=== PATIENT | female | born 1980 | race Caucasian/White ===

== ENCOUNTER 2017-10-12 18:23 | Emergency (ER) | payer OTHER ==
[2017-10-12 18:50] VITALS: BP 131/73
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
== END 2017-10-12 18:58 | disposition left against medical advice (07) ==
LOC: ED 18:23
DX: R79.9 Abnormal finding of blood chemistry, unspecified (principal); Z72.0 Tobacco use
CPT/HCPCS: 99281

== ENCOUNTER 2018-09-03 16:10 | Emergency (ER) | payer OTHER ==
--- NOTE | 2018-09-03 16:57 | ED ---
Substance Abuse/Use - HPI Summary HPI Summary: Pt is a 38 y/o F presenting to the ED with a chief complaint of substance abuse. She states she is an alcoholic and she would like to go through rehab/ detox. She went to [facility] earlier today and they were trying to get her into a program, but she ended up here. Her last drink was around 1030 this morning. Pt denies any fever, chills, erythema of eyes, sore throat, CP, SOB, cough, abdominal pain, N/V, dysuria, hematuria, myalgia, edema , rash, or dizziness. - History Of Current Complaint Chief Complaint: EDSubstanceAbuse Stated Complaint: MHE PER EMS Time Seen by Provider: 09/03/18 16:42 Hx Obtained From: Patient Hx Last Menstrual Period: 3 weeks ago Overdose Characteristics: Oral Timing Of Abuse: Daily Severity Initially: Moderate Severity Currently: Moderate Character: Anxious Aggravating Factor(s): Nothing Alleviating Factor(s): Nothing Associated Signs And Symptoms: Negative - Allergies/Home Medications Allergies/Adverse Reactions: Allergies Allergy/AdvReac Type Severity Reaction Status Date / Time No Known Allergies Allergy Verified 02/21/16 14:05 PMH/Surg Hx/FS Hx/Imm Hx Previously Healthy: Yes Endocrine/Hematology History: Denies: Hx Diabetes Psychiatric History: Reports: Hx Anxiety, Hx Depression Denies: Hx Eating Disorder, Hx of Violent Episodes Against Others - Surgical History Surgery Procedure, Year, and Place: eye. back Infectious Disease History: No Infectious Disease History: Denies: Traveled Outside the [place] in Last 30 Days - Family History Known Family History: Negative: Other - depression - Social History Alcohol Use: Occasionally Alcohol Amount: DWI in 2011 Hx Substance Use: Yes Substance Use Type: Reports: Heroin, Marijuana, Sedatives Substance Use Comment - Amount & Last Used: declined to answer at this time Hx Tobacco Use: Yes Smoking Status (MU): Current Some Day Smoker Type: Cigarettes Amount Used/How Often: <1 ppd Review of Systems Negative: Fever, Chills Negative: Erythema Negative: Sore Throat Negative: Chest Pain Negative: Shortness Of Breath, Cough Negative: Abdominal Pain, Vomiting, Nausea Negative: dysuria, hematuria Negative: Myalgia, Edema Negative: Rash Neurological: Negative - dizziness All Other Systems Reviewed And Are Negative: Yes Physical Exam - Summary Physical Exam Summary: Constitutional: Well-developed, Well-nourished, Alert. (-) Distressed Skin: Warm, Dry HENT: Normocephalic; Atraumatic Eyes: Conjunctiva normal Neck: Musculoskeletal ROM normal neck. (-) JVD, (-) Stridor, (-) Tracheal deviation Cardio: Rhythm regular, rate normal, Heart sounds normal; Intact distal pulses; The pedal pulses are 2+ and symmetric. Radial pulses are 2+ and symmetric. (-) Murmur Pulmonary/Chest wall: Effort normal. (-) Respiratory distress, (-) Wheezes, (-) Rales Abd: Soft, (-) tenderness, (-) Distension, (-) Guarding, (-) Rebound Musculoskeletal: (-) Edema Lymph: (-) Cervical adenopathy Neuro: Alert, Oriented x3 Psych: Mood and affect Normal Triage Information Reviewed: Yes Vital Signs On Initial Exam: Initial Vitals Temp Pulse Resp BP Pulse Ox 98.3 F 88 18 146/92 96 09/03/18 16:11 09/03/18 16:11 09/03/18 16:11 09/03/18 16:11 09/03/18 16:11 Vital Signs Reviewed: Yes Diagnostics - Vital Signs Vital Signs Temp Pulse Resp BP Pulse Ox 09/03/18 16:11 98.3 F 88 18 146/92 96 - Laboratory Lab Statement: Any lab studies that have been ordered have been reviewed, and results considered in the medical decision making process. Course/Dx - Course Course Of Treatment: Pt is a 38 y/o F presenting to the ED with a chief complaint of substance abuse. She states she is an alcoholic and she would like to go through rehab/detox. She went to [facility] earlier today and they were trying to get her into a program, but she ended up here. Her last drink was around 1030 this morning. Pt denies any fever, chills, erythema of eyes, sore throat, CP, SOB, cough, abdominal pain, N/V, dysuria, hematuria, myalgia, edema, rash, or dizziness. 1710 - I spoke with Dr. Coreas as well as Anna about the patient who states that she can be seen tomorrow at [facility], and since there is no immediate life threat to the patient, she does not need admission. Parents at bedside at 1720 expressing concern about possible admission. I reassured them that if she had a life- threatening condition she would be admitted, however based on my discussion with Dr. Coreas I do not think she needs it at this time. They are agreeable with the plan to follow up at [facility] tomorrow. She will be d/c'ed with a dx of alcoholism and instructions to f/u with Dr. Coreas and [facility]. She has no clinical signs of withdrawal. I provided her and her parents with resources for substance abuse. The patient has no clinical signs of acute intoxication at discharge. Her finger to nose test was intact, there was no ataxia. She had a steady gait. I suspect that the patient has a significant alcohol tolerance. - Diagnoses Provider Diagnoses: Alcoholism Discharge - Sign-Out/Discharge Documenting (check all that apply): Patient Departure Patient Received Moderate/Deep Sedation with Procedure: No - Discharge Plan Condition: Stable Disposition: HOME Prescriptions: chlordiazePOXIDE CAP* [Librium CAP*] 25 mg PO Q6HR PRN #5 cap MDD 4 PRN Reason: Withdrawal Symptoms Referrals: Anil Coreas MD [Medical Doctor] - Byron Nolen MD [Primary Care Provider] - [facility] [place] [Outside] - 1 Day Additional Instructions: Please follow up with Dr. Coreas of the [facility] tomorrow, 09/04/18. RETURN TO THE EMERGENCY DEPARTMENT WITH ANY NEW OR WORSENING SYMPTOMS. - Attestation Statements Document Initiated by Scribe: Yes Documenting Scribe: Emmie Rader Provider For Whom Scribe is Documenting (Include Credential): Bradly Kong MD. Scribe Attestation: I, Emmie Rader, scribed for Bradly Kong MD. on 09/03/18 at 1757. Status of Scribe Document: Ready Consult Consult: 1710 - I spoke with Dr. Coreas about the patient who states that she can be seen tomorrow at the [facility], and that there are no indicators for admission at this time.
[2018-09-03 17:54] VITALS: BP 135/99
== END 2018-09-03 17:53 | disposition home or self-care (01) ==
LOC: ED 16:10
DX: F10.20 Alcohol dependence, uncomplicated (principal); F17.210 Nicotine dependence, cigarettes, uncomplicated
CPT/HCPCS: 36415; 80320; 99282; G0480

== ENCOUNTER 2023-07-06 01:17 | Inpatient (IN) ==
[2023-07-06 02:03] LABS: ABS Monocytes 0.9 10^3/uL (0.0-0.9); ABS Neutrophils 7.2 10^3/uL (1.5-7.6); Eosinophil % 0.2 %; Hematocrit 39.8 % (35-45); Lymphocyte % 11.4 %; Mean Corpuscular Hemoglobin 30.6 pg (27-33); Mean Corpuscular Hgb Conc 35.2 g/dL (31-36); Mean Corpuscular Volume 86.9 fL (80-97); Mean Platelet Volume 7.4 fL (7.5-11.2); Platelet Count 474 10^3/uL (150-450); Red Blood Count 4.58 10^6/uL (3.63-4.92); Red Cell Distribution Width 13.6 % (12-17); White Blood Count 9.2 10^3/uL (3.8-11.8)
[2023-07-06 02:44] LABS: ALT 20 U/L (7-52); AST 21 U/L (13-39); Acetaminophen < 15 mcg/mL; Albumin 4.9 g/dL (3.2-5.2); Alcohol, S < 13 mg/dL (<13); Alkaline Phosphatase 51 U/L (35-149); Anion Gap 7 mmol/L (2-16); Blood Urea Nitrogen 28 mg/dL (6-24); CO2 Carbon Dioxide 27 mmol/L (22-32); Calcium 9.9 mg/dL (8.6-10.3); Chloride 102 mmol/L (101-111); Creatinine, Serum 0.75 mg/dL (0.51-0.95); Globulin 2.5 g/dL (2-4); Glucose 96 mg/dL (70-100); Potassium 3.6 mmol/L (3.5-5.0); Salicylate < 2.50 mg/dL (<30); Sodium 136 mmol/L (135-145); Total Bilirubin 0.8 mg/dL (0.2-1.0); Total Protein 7.4 g/dL (6.4-8.9)
[2023-07-06 02:51] LABS: HCG Pregnancy < 0.60 mIU/mL
[2023-07-06 03:00] LABS: TSH Ultra Thyroid Stim Horm 2.22 mcIU/mL (0.34-5.60)
[2023-07-06 03:43] LABS: Urine Appearance Clear; Urine Bilirubin Negative (Negative); Urine Blood Trace (Negative); Urine Color Yellow; Urine Glucose Negative (Negative); Urine Ketones 1+ (Negative); Urine Nitrite Negative (Negative); Urine Protein Trace (Negative); Urine Specific Gravity 1.025 (1.002-1.030); Urine Urobilinogen Negative (Negative); Urine pH 6.5 (5.0-8.0)
[2023-07-06 03:57] LABS: Urine Benzodiazepine Screen None Detected (None Detect); Urine Cannabinoids Screen Presumptive Positive (None Detect); Urine Opiates Screen None Detected (None Detect)
[2023-07-06] MEDS ORDERED: Al Hydrox/Mg Hydrox/Simet LIQ 30 ML UDC PO PRN (05:37)
[2023-07-06] MEDS: Vitamin THERAPEUTIC TAB PO SCH (10:31)
[2023-07-06] MEDS: Nicotine Lozenge mini 2 MG LOZNG.MINI MT PRN (20:17)
[2023-07-07] MEDS: Nicotine PATCH 21 MG/24 HR PATCH TRANSDERM SCH (08:49)
[2023-07-07] MEDS ORDERED: Buprenorp/Nalox 12-3 MG FILM SL SCH (13:00)
[2023-07-07] MEDS: Buprenorp/Nalox 12-3 MG FILM SL SCH (13:13)
[2023-07-07] MEDS: Nicotine PATCH 21 MG/24 HR PATCH ONE (14:32)
[2023-07-08 10:39] LABS: HDL Cholesterol 69.1 mg/dL
[2023-07-08] MEDS: Fluticasone NASAL SPRAY 50MCG 16 gm SPRAY BTL BOTH NARES SCH (11:54)
[2023-07-08] MEDS: LoraTADine 10 mg TAB (NF) PO SCH (11:54)
[2023-07-08] MEDS: Nicotine GUM 2MG FRUIT FLAVOR PO PRN (13:31)
[2023-07-09 09:36] VITALS: BP 142/74
== END 2023-07-09 12:45 | disposition home or self-care (01) | DRG 773 ==
LOC: ED 01:17 → EDHOLD 05:37 → BSU 06:15
PROVIDERS: ADMIT Psychiatry & Neurology Addiction Psychiatry; ATTEND Student in an Organized Health Care Education/Training Program